=== PATIENT | female | born 1985 | race Caucasian/White ===

== ENCOUNTER 2019-09-06 14:50 | Emergency (ER) | payer OTHER ==
[~2019-09-06] VITALS: Ht 162.6 cm; Wt 87.3 kg
[2019-09-06 15:38] LABS: BASO # 0.1 10^3/uL (0.0-0.2); BASO % 0.5 % (0.0-1.0); EOS # 0.2 10^3/uL (0.0-0.5); EOS % 1.6 % (0.0-3.0); HEMATOCRIT 38.6 % (36.0-47.0); HEMOGLOBIN 12.5 g/dl (12.0-15.5); LYMPH # 2.6 10^3/uL (1.5-5.0); LYMPH % 23.6 % (24.0-44.0); MEAN CORPUSCULAR HEMOGLOBIN 26.8 pg (27.0-33.0); MEAN CORPUSCULAR HGB CONC 32.4 g/dl (32.0-36.5); MEAN CORPUSCULAR VOLUME 82.8 fl (80.0-96.0); MONO # 0.8 10^3/uL (0.0-0.8); MONO % 7.6 % (0.0-5.0); NEUTROPHILS # 7.3 10^3/uL (1.5-8.5); NEUTROPHILS % 66.2 % (36.0-66.0); PLATELET COUNT, AUTOMATED 304 10^3/uL (150-450); RED BLOOD COUNT 4.66 10^6/uL (4.00-5.40)
[2019-09-06 16:05] LABS: BLOOD UREA NITROGEN 9 MG/DL (7-18); CALCIUM LEVEL 9.2 MG/DL (8.5-10.1); CARBON DIOXIDE LEVEL 22 MEQ/L (21-32); CHLORIDE LEVEL 109 MEQ/L (98-107); CREATININE FOR GFR 0.77 MG/DL (0.55-1.30); GLOMERULAR FILTRATION RATE > 60.0 (>60); GLUCOSE, FASTING 92 MG/DL (70-100); HCG, SERUM QUANTITATIVE 173 MIU/ML; POTASSIUM SERUM 4.2 MEQ/L (3.5-5.1); SODIUM LEVEL 138 MEQ/L (136-145)
--- NOTE | 2019-09-06 18:19 | REPVR ---
PROCEDURE INFORMATION: Exam: US Retroperitoneal Limited, Kidneys Exam date and time: 09/06/2019 5:47 PM Age: 33 years old Clinical indication: Pain; Other: Flank; ; Additional info: Positive hcg, vaginal bleeding, left flank pain TECHNIQUE: Imaging protocol: Real-time ultrasound of the retroperitoneum with image documentation. Examination was focused on the kidneys. COMPARISON: No relevant prior studies available. FINDINGS: Right kidney: Right kidney measures 10.9 x 5.1 x 3.7 cm. Normal parenchyma. No hydronephrosis. Left kidney: Left kidney measures 11 x 4.6 x 4.3 cm. Normal parenchyma. No hydronephrosis. Bladder: Urinary bladder unremarkable. Ureteral jets not visualized. IMPRESSION: Nonvisualized red ureteral jets. Otherwise unremarkable. Electronically signed by: Josh Lorenz On 09/06/2019 18:18:45 PM
--- NOTE | 2019-09-06 18:20 | REPVR ---
PROCEDURE INFORMATION: Exam: US First Trimester, Transabdominal Exam date and time: 09/06/2019 5:47 PM Age: 33 years old Clinical indication: Lmp or gestational age (in weeks): 4wks; Other: Vag bleeding; ; Additional info: Positive hcg, vaginal bleeding TECHNIQUE: Imaging protocol: Real-time transabdominal obstetrical ultrasound of the maternal pelvis and a first trimester , less than 14 weeks 0 days, with image documentation. COMPARISON: RENAL US 09/06/2019 5:42 PM FINDINGS: GESTATION: Gestation: No evidence of a gestational sac, pole or yolk sac. Heart rate: Not applicable Placenta: Unremarkable. No subchorionic bleed. Amniotic fluid: Amniotic and chorionic fluid are normal for gestational age. BIOMETRY: Estimated gestational age: 4 weeks by LMP of 08/01/2019 MATERNAL: Uterus: Uterus measures 8.9 x 4.8 x 6 cm. Endometrial echo complex measures 15 mm. Cervix: Unremarkable. Right adnexa: Right ovary measures 2.2 x 1.5 x 2.6 cm. Normal flow. Left adnexa: Left ovary measures 3.5 x 1.4 x 1.9 cm. Normal flow. Intraperitoneal: Trace free fluid in the cul-de-sac. IMPRESSION: Empty uterus in a patient reportedly positive beta HCG. Findings may indicate very early IUP prior to visualization of a gestational sac or fetus. Correlation with serial beta-hCG levels and follow ultrasound recommended in order to exclude ectopic verses very early or early failure. Electronically signed by: Josh Lorenz On 09/06/2019 18:20:40 PM
[2019-09-06 19:47] VITALS: BP 98/51
[2019-09-06 20:32] LABS: CHLAMYDIA DNA AMPLIFICATION NEGATIVE (NEGATIVE); GC DNA AMPLIFICATION NEGATIVE (NEGATIVE)
== END 2019-09-06 19:56 | disposition home or self-care (01) ==
LOC: M ED 14:50
DX: Z32.01 Encounter for pregnancy test, result positive (principal); M54.5 Low back pain; F17.210 Nicotine dependence, cigarettes, uncomplicated

== ENCOUNTER → 2019-09-08 | Outpatient (CLI) | payer OTHER | LOC: M LAB 15:18 | PROVIDERS: ATTEND Physician Assistant | DX: Z32.00 Encounter for pregnancy test, result unknown (principal) ==

== ENCOUNTER 2020-02-06 13:48 | Emergency (ER) | payer OTHER ==
[~2020-02-06] VITALS: Ht 162.6 cm; Wt 93.3 kg
[2020-02-06 15:12] LABS: BASO # 0.1 10^3/uL (0.0-0.2); BASO % 0.5 % (0.0-1.0); EOS # 0.2 10^3/uL (0.0-0.5); EOS % 2.2 % (0.0-3.0); HEMATOCRIT 38.3 % (36.0-47.0); HEMOGLOBIN 12.5 g/dl (12.0-15.5); LYMPH # 2.7 10^3/uL (1.5-5.0); MEAN CORPUSCULAR HEMOGLOBIN 27.1 pg (27.0-33.0); MEAN CORPUSCULAR HGB CONC 32.6 g/dl (32.0-36.5); MEAN CORPUSCULAR VOLUME 83.1 fl (80.0-96.0); MONO # 0.8 10^3/uL (0.0-0.8); MONO % 7.2 % (0.0-5.0); NEUTROPHILS # 6.7 10^3/uL (1.5-8.5); NEUTROPHILS % 63.6 % (36.0-66.0); PLATELET COUNT, AUTOMATED 292 10^3/uL (150-450); RED BLOOD COUNT 4.61 10^6/uL (4.00-5.40); WHITE BLOOD COUNT 10.5 10^3/uL (4.0-10.0)
[2020-02-06] MEDS ORDERED: IBUP80TA PO (16:59)
[2020-02-06 17:08] VITALS: BP 122/83
--- NOTE | 2020-02-07 02:05 | REP ---
PELVIC ULTRASOUND: Real-time sonographic evaluation of pelvis performed utilizing transabdominal and endovaginal technique. Uterus measures 8.7 x 4.9 x 5.9 cm. Endometrial thickness is 11 mm. No intrauterine gestational sac or fluid is seen. Ovaries are normal in size and echotexture, right ovary measuring 2.9 x 2.0 x 2.4 cm and left ovary 3.4 x 2.0 x 2.6 cm. There is no adnexal mass. There is trace free fluid. There is no evidence of ovarian torsion with duplex Doppler evaluation. Findings may represent missed AB, very early intrauterine , or ectopic . Suggest correlation with serial quantitative beta hCG values. Electronically Signed by Piotr Aldridge MD 02/08/2020 09:45 P
== END 2020-02-06 17:17 | disposition home or self-care (01) ==
LOC: M ED 13:48
DX: O20.0 Threatened abortion (principal); O99.330 Smoking (tobacco) complicating pregnancy, unspecified trimester; F17.210 Nicotine dependence, cigarettes, uncomplicated; Z3A.00 Weeks of gestation of pregnancy not specified

== ENCOUNTER 2020-02-22 12:42 | Emergency (ER) | payer OTHER ==
[~2020-02-22] VITALS: Ht 162.6 cm; Wt 86.4 kg
[~2020-02-22 12:42] MED LIST: IBUP80TA PO
--- NOTE | 2020-02-22 14:18 | REP ---
Left lower extremity Duplex Doppler venous ultrasound: Real time compression and duplex Doppler interrogation of the left lower extremity deep venous system is performed. The left common femoral, superficial femoral and popliteal veins are fully compressible with transducer pressure and demonstrate normal spontaneous and phasic flow, without evidence of deep venous thrombosis. Impression: No evidence of deep venous thrombosis of the left lower extremity femoral popliteal venous system. Electronically Signed by Piotr Aldridge MD 02/22/2020 02:09 P
[2020-02-22] MEDS ORDERED: KETO10TAB PO (14:24)
[2020-02-22] MEDS ORDERED: KETOROLAC 60MG 2ML VIAL IM ONE (14:30)
[2020-02-22 15:25] VITALS: BP 118/67
== END 2020-02-22 15:27 | disposition home or self-care (01) ==
LOC: M ED 12:42
DX: M79.652 Pain in left thigh (principal); F17.200 Nicotine dependence, unspecified, uncomplicated
CPT/HCPCS: 93971; 99283; J1885